=== PATIENT | female | born 1980 | race Caucasian/White ===

== ENCOUNTER 2017-12-04 16:29 | Emergency (ER) | payer OTHER ==
[2017-12-04 16:38] VITALS: BMI 28.0
--- NOTE | 2017-12-04 17:14 | PDOC ---
History of Present Illness - General Chief Complaint: Palpitations Stated Complaint: NAUSEA Time Seen by Provider: 12/04/17 16:54 - History of Present Illness Initial Comments: 12/04/17 17:27 36 year old woman with no past medical history who presents with sudden onset symptoms of heart racing, diaphoresis, lightheadedness, nausea and feelings of leg weakness that occurred when the patient was standing for approx 30min while registering her daughter for school. Symptoms were reported to improve when the patient sat down but recurred approx 1-2 hours later. The patient notes that she drank 1 cup of coffee this AM prior to the onset of these symptoms and she does not normally drink coffee. She denies any supplement use. At bedside she complains of some nausea but notes resolution of all other symptoms. Patient denies recent travel, denies shortness of breath, chest pain, abdominal pain, recent cold/flu, recent fever, diarrhea or vomiting. PMHX: as in HPI Meds: none Allergies: NKDA Tob: none Etoh: none Rec drugs: none PCP: L[facility] Past History - Past Medical History Allergies/Adverse Reactions: Allergies Allergy/AdvReac Type Severity Reaction Status Date / Time No Known Allergies Allergy Verified 12/04/17 16:35 Home Medications: Ambulatory Orders NK [No Known Home Medication] 12/04/17 COPD: No - Suicide/Smoking/Psychosocial Hx Smoking History: Never smoked Review of Systems - Review of Systems Able to Perform ROS?: Yes Is the patient limited Greek proficient: No Constitutional: Yes: See HPI, Diaphoresis. No: Chills, Fever HEENTM: No: Blurred Vision, Tinnitus Respiratory: No: Cough, Orthopnea, Shortness of Breath Cardiac (ROS): Yes: Lightheadedness, Palpitations, Chest Tightness. No: Chest Pain ABD/GI: No: Diarrhea, Nausea, Poor Appetite, Poor Fluid Intake, Vomiting : No: Burning, Dysuria Musculoskeletal: No: Back Pain Neurological: No: Headache, Numbness, Paresthesia, Weakness *Physical Exam - Vital Signs Last Vital Signs Temp Pulse Resp BP Pulse Ox 98.7 F 66 17 118/78 100 12/04/17 16:36 12/04/17 16:36 12/04/17 16:36 12/04/17 16:36 12/04/17 16:36 - Physical Exam Comments: 12/04/17 17:24 GENERAL: Awake, alert, and fully oriented, in no acute distress HEAD: No signs of trauma, normocephalic, atraumatic EYES: EOMI, sclera anicteric, conjunctiva clear ENT: oropharynx clear without exudates. Moist mucosa NECK: Normal ROM, supple LUNGS: No distress, speaks full sentences, clear to auscultation bilaterally HEART: Regular rate and rhythm, normal S1 and S2, no murmurs, rubs or gallops, peripheral pulses normal and equal bilaterally. ABDOMEN: Soft, nontender, normoactive bowel sounds. No guarding, no rebound. No masses EXTREMITIES : Normal inspection, Normal range of motion, no edema. No clubbing or cyanosis. NEUROLOGICAL: Cranial nerves II through XII grossly intact. Normal speech, normal gait, no focal sensorimotor deficits SKIN: Warm, Dry, normal turgor, no rashes or lesions noted ED Treatment Course - LABORATORY CBC & Chemistry Diagram: 12/04/17 17:02 12/04/17 17:02 Medical Decision Making - Medical Decision Making 12/04/17 17:15 36 year old woman with no past medical history who presents with sudden onset symptoms of heart racing, diaphoresis, lightheadedness, nausea and feelings of leg weakness that improved when the patient sat down but recurred approx 1-2 hours later. The patient notes that she drank 1 cup of coffee this AM prior to the onset of these symptoms and she does not normally drink coffee. She denies any supplement use. At bedside she complains of some nausea but notes resolution of all other symptoms. Patient denies recent travel, denies shortness of breath, chest pain, abdominal pain, recent cold/flu, recent fever, diarrhea or vomiting. DDX including but not limited to: hyperthyroidism vs arrythmia vs dehydration vs vs anxiety vs UTI vs anemia W/U: - cbc, cmp, TSH - ua, ucx, u preg - EKG TX: - 1L NS ED Course: Patient assessed. stable. no acute distress. 12/04/17 18:30 EKG: Sinus jack Urine: pending. 12/04/17 18:47 Patient reassessed. stable. feels improved. *DC/Admit/Observation/Transfer Diagnosis at time of Disposition: Palpitations - Discharge Dispostion Disposition: HOME Condition at time of disposition: Stable Decision to Admit order: No - Referrals Referrals: Jimmy Pavon MD [Primary Care Provider] - - Patient Instructions Printed Discharge Instructions: DI for Palpitations Additional Instructions: You were seen in the ED for complaints of palpitations. In the ED you were evaluated with labwork and EKG. Your results were unremarkable. There does not appear to be an acute need for immediate hospitalization. You are advised to follow up with your primary care physician within 1 week. Return to the ED immediately if you experience worsening palpitations, lightheadedness, chest pain, loss of consciousness, nausea, vomiting, fever, shortness of breath or diarrhea. - Post Discharge Activity Forms/Work/School Notes: Back to Work
[2017-12-04] MEDS ORDERED: SODIUM CHLORIDE 1,000 ML IV SCH (17:15)
[2017-12-04] MEDS ORDERED: ONDANSETRON 4 MG/2 ML VIAL IVPUSH ONE (17:19)
[2017-12-04] MEDS ORDERED: ONDANSETRON 4 MG/2 ML VIAL ONE (17:24)
[2017-12-04 17:27] LABS: BASO % 0.4 % (0-2.0); EOS % 0.6 % (0-4.5); HEMATOCRIT 39.8 % (32.4-45.2); HEMOGLOBIN 13.5 GM/dL (10.7-15.3); LYMPH % 27.2 % (8-40); MCH 31.4 pg (25.7-33.7); MCHC 33.9 g/dl (32.0-36.0); MEAN CELL VOLUME 92.5 fl (80-96); MEAN PLT VOLUME 9.4 fl (7.5-11.1); MONO % 5.7 % (3.8-10.2); NEUT % 66.1 % (42.8-82.8); PLATELET COUNT 236 K/MM3 (134-434); RDW 12.5 % (11.6-15.6); WHITE BLOOD COUNT 8.3 K/mm3 (4.0-10.0)
[2017-12-04 18:11] LABS: ALBUMIN 3.8 g/dl (3.4-5.0); ALK PHOS 52 U/L (45-117); ANION GAP 3 MMOL/L (8-16); BILIRUBIN,TOTAL 0.3 mg/dL (0.2-1); BLOOD UREA NITROGEN 8 mg/dL (7-18); CALCIUM 8.7 mg/dL (8.5-10.1); CHLORIDE 108 mmol/L (98-107); CO2 29 mmol/L (21-32); CREATININE 0.7 mg/dL (0.55-1.3); GLUCOSE,RANDOM 96 mg/dL (74-106); POTASSIUM 3.8 mmol/L (3.5-5.1); SGOT/AST 14 U/L (15-37); SGPT/ALT 16 U/L (13-61); SODIUM 140 mmol/L (136-145); TOT PROT 7.2 g/dl (6.4-8.2)
--- NOTE | 2017-12-04 18:37 | PDOC ---
Attending Attestation - Resident Resident Name: Shira Jalloh - ED Attending Attestation I have performed the following: I have examined & evaluated the patient, The case was reviewed & discussed with the resident, I agree w/resident's findings & plan, Exceptions are as noted - HPI HPI: 12/04/17 18:34 28-year-old female no past medical history here today complaining of episode of racing heart beats followed by near syncope relieved with sitting. Patient was standing registering her daughter for school when she suddenly felt her heart was racing she did feel lightheaded was able to sit down denies any no history of previous episodes no fevers chills no abdominal pain no chest pain no leg swelling or history of PE or DVT no known thyroid abnormality. Patient states she was up moving around and had a second episode similar she came to the ED - Physicial Exam PE: 12/04/17 18:35 Awake alert no acute distress lungs are clear bilaterally heart is regular without any murmurs rubs or gallops abdomen is soft nontender extremities are warm and well-perfused there is no noted peripheral edema or calf tenderness neurologically she is awake alert oriented 3 - Medical Decision Making 12/04/17 18:36 Differential diagnosis includes anemia, dehydration, thyroid abnormality, dysrhythmia, anxiety infection such as UTI plan IV hydration EKG CBC CMP UA UCG and reassess. Fall are unremarkable patient will likely be discharged home told to follow-up with a primary care doctor
[2017-12-04 19:29] LABS: URINE APPEARANCE CLEAR; URINE BILIRUBIN NEGATIVE (<2.0 mg/dL); URINE COLOR LTYELLOW; URINE GLUCOSE (UA) NEGATIVE (NEGATIVE); URINE KETONE NEGATIVE (NEGATIVE); URINE LEUK ESTERASE NEGATIVE (NEGATIVE); URINE NITRITE NEGATIVE (NEGATIVE); URINE PROTEIN NEGATIVE (NEGATIVE); URINE UROBILINOGEN NEGATIVE mg/dL (0.2-1.0)
[2017-12-04 20:22] VITALS: BP 112/61; PULSE 71; TEMP 98.6
--- NOTE | 2017-12-05 08:05 | EKG ---
Test Reason : Blood Pressure : / mmHG Vent. Rate : 059 BPM Atrial Rate : 059 BPM P-R Int : 138 ms QRS Dur : 092 ms QT Int : 398 ms P-R-T Axes : 046 072 050 degrees QTc Int : 394 ms SINUS BRADYCARDIA OTHERWISE NORMAL ECG NO PREVIOUS ECGS AVAILABLE Confirmed by JESI RASHEED, MARVEL ([id number]) on 12/05/2017 8:05:21 AM Referred By: Confirmed By:MARVEL DENNISON MD
== END 2017-12-04 20:23 | disposition home or self-care (01) ==
LOC: JER 16:29
PROC: 3E033GC Introduction of Other Therapeutic Substance into Peripheral Vein, Percutaneous Approach (ICD-10-PCS; principal; 2017-12-04)
PROC: 3E0337Z Introduction of Electrolytic and Water Balance Substance into Peripheral Vein, Percutaneous Approach (ICD-10-PCS; 2017-12-04)
DX: R00.2 Palpitations (principal)
CPT/HCPCS: 36415; 80053; 81003; 84443; 84702; 85025; 87086; 93005; 93010; 99285-25; J7030